=== PATIENT | female | born 1980 | race Two or more races ===

== ENCOUNTER 2018-09-01 13:38 | Inpatient (IN) | payer OTHER ==
[~2018-09-01] VITALS: Ht 175.3 cm; Wt 91.2 kg
[2018-09-02] MEDS ORDERED: PROGESTERONE200 MG PO (13:25)
[2018-09-02] MEDS ORDERED: DICLEGIS DR 101 EACH PO (13:25)
== END 2018-09-05 12:04 | disposition home or self-care (01) | DRG 833 ==
LOC: LDR 13:38 → OB/GYN 13:38 → LDR 16:08 → OB/GYN 09-02 10:44
PROVIDERS: ADMIT Obstetrics & Gynecology
PROC: 4A1HXCZ Monitoring of Products of Conception, Cardiac Rate, External Approach (ICD-10-PCS; principal; 2018-09-01)
PROC: BW40ZZZ Ultrasonography of Abdomen (ICD-10-PCS; 2018-09-01)
PROC: BY4FZZZ Ultrasonography of Third Trimester, Single Fetus (ICD-10-PCS; 2018-09-01)
DX: O21.0 Mild hyperemesis gravidarum (principal); Z34.82 Encounter for supervision of other normal pregnancy, second trimester; E86.0 Dehydration; E87.8 Other disorders of electrolyte and fluid balance, not elsewhere classified

== ENCOUNTER 2019-02-07 05:20 | Inpatient (IN) | payer OTHER ==
[~2019-02-07] VITALS: Ht 175.3 cm; Wt 97.5 kg
[~2019-02-07 05:20] MED LIST: DICLEGIS DR 101 EACH PO; PROGESTERONE200 MG PO
== END 2019-02-09 12:06 | disposition home or self-care (01) | DRG 807 ==
LOC: LDR 05:20 → OB/GYN 05:20
PROVIDERS: ADMIT Obstetrics & Gynecology
PROC: 10E0XZZ Delivery of Products of Conception, External Approach (ICD-10-PCS; principal; 2019-02-07)
PROC: 0UQMXZZ Repair Vulva, External Approach (ICD-10-PCS; 2019-02-07)
PROC: 3E0P7VZ Introduction of Hormone into Female Reproductive, Via Natural or Artificial Opening (ICD-10-PCS; 2019-02-07)
PROC: 3E033VJ Introduction of Other Hormone into Peripheral Vein, Percutaneous Approach (ICD-10-PCS; 2019-02-07)
PROC: 10907ZC Drainage of Amniotic Fluid, Therapeutic from Products of Conception, Via Natural or Artificial Opening (ICD-10-PCS; 2019-02-07)
PROC: 4A1HXCZ Monitoring of Products of Conception, Cardiac Rate, External Approach (ICD-10-PCS; 2019-02-07)
DX: O71.82 Other specified trauma to perineum and vulva (principal); Z37.0 Single live birth; Z3A.38 38 weeks gestation of pregnancy

== ENCOUNTER 2020-04-30 05:00 | Day surgery (SDC) | payer OTHER | END 2020-04-30 15:40 | disposition home or self-care (01) | LOC: CIR.AMB 05:00 | PROVIDERS: ATTEND Obstetrics & Gynecology | DX: N84.0 Polyp of corpus uteri (principal); Z20.828 Contact with and (suspected) exposure to other viral communicable diseases ==

== ENCOUNTER 2021-01-09 16:01 | Outpatient (CLI) | payer OTHER | END 2021-01-10 12:50 | disposition home or self-care (01) | LOC: OBS/DEL 16:01 | PROVIDERS: ATTEND Obstetrics & Gynecology | DX: O36.8120 Decreased fetal movements, second trimester, not applicable or unspecified (principal); Z3A.25 25 weeks gestation of pregnancy ==

== ENCOUNTER 2021-01-18 06:13 | Outpatient (CLI) | payer OTHER | END 2021-01-18 07:14 | disposition home or self-care (01) | LOC: NST 06:13 → LAB 06:13 → NST 07:14 | PROVIDERS: ATTEND Obstetrics & Gynecology | DX: Z34.82 Encounter for supervision of other normal pregnancy, second trimester (principal) ==

== ENCOUNTER 2021-07-19 11:59 | Emergency (ER) | payer OTHER ==
[~2021-07-19] VITALS: Ht 172.7 cm; Wt 86.2 kg
== END 2021-07-19 18:06 | disposition home or self-care (01) ==
LOC: ER 11:59
DX: R10.84 Generalized abdominal pain (principal); K82.9 Disease of gallbladder, unspecified; Z88.6 Allergy status to analgesic agent; Z91.012 Allergy to eggs